=== PATIENT | female | born 1955 | race African-American/Black ===

== ENCOUNTER 2016-05-06 20:44 | Emergency (ER) | payer OTHER ==
[~2016-05-06] VITALS: Ht 157.5 cm; Wt 110.4 kg
[~2016-05-06 20:44] MED LIST: ASPIRIN325 M1 PO; blood pressure meds
[2016-05-06 21:30] LABS: HEMATOCRIT 37.5 % (36.0-46.0); MCH 28.1 PG (29.0-34.0); MCV 87.8 FL (83-99); MEAN PLAT.VOLUME 11.2 uM^3 (9.5-12.4); PLATELET COUNT 198 K/uL (156-360); RBC DIS.WIDTH-CV 14.1 % (11.8-14.6); RBC DIS.WIDTH-SD 44.4 % (39-53); RED BLOOD COUNT 4.27 M/uL (3.80-5.20); WHITE BLOOD COUNT 8.2 K/uL (4.1-10.2)
[2016-05-06 21:38] LABS: CHLORIDE 106 mEq/L (99-109); POTASSIUM 3.6 mEq/L (3.7-5.4); SODIUM 142 mEq/L (136-147)
[2016-05-06 21:40] LABS: ADD MIUA? YES; BILIRUBIN NEGATIVE; BLOOD MODERATE; COLOR YELLOW ((YELLOW)); GLUCOSE (STRIP) NEGATIVE; KETONES NEGATIVE; LEUKOCYTES NEGATIVE; NITRITE NEGATIVE; PH, URINE 6.5 (5-8); PROTEIN (STRIP) NEGATIVE; SPECIFIC GRAVITY 1.016 (1.000-1.030)
[2016-05-06 21:41] LABS: GLUCOSE 100 mg/dL (70-99)
[2016-05-06 21:42] LABS: ANION GAP 10 MEQ/L (2-14)
[2016-05-06 21:43] LABS: TOTAL BILIRUBIN 0.5 mg/dL (0.0-1.0)
[2016-05-06 21:44] LABS: ALKALINE PHOSPHATASE 80 IU/L (3-129); GFR ESTIMATE (CALCULATED) > 59 mL/min/
[2016-05-06 21:45] LABS: UREA NITROGEN (BUN) 18 mg/dL (9-23)
[2016-05-06 21:46] LABS: BACTERIA 1+ /HPF; EPITHELIAL CELLS RARE /HPF; HYALINE CASTS 0-5 /LPF; MUCUS TRACE /LPF; RED BLOOD CELLS 0-5 /HPF (0-5); UCUL ADDED? NO; WHITE BLOOD CELLS 0-5 /HPF (0-5)
[2016-05-06 22:09] LABS: INFLUENZA A VIRAL ANTIGEN NEGATIVE; INFLUENZA B VIRAL ANTIGEN NEGATIVE
[2016-05-06 23:25] VITALS: BP 142/83
== END 2016-05-06 23:26 | disposition home or self-care (01) ==
LOC: EME 20:44 → EXP 20:44
DX: J11.1 Influenza due to unidentified influenza virus with other respiratory manifestations (principal); E78.5 Hyperlipidemia, unspecified; I10 Essential (primary) hypertension; Z88.1 Allergy status to other antibiotic agents; Z88.6 Allergy status to analgesic agent
CPT/HCPCS: 80053; 81003; 85027; 87502; 99281; 99285